=== PATIENT | male | born 1965 | race Caucasian/White ===

== ENCOUNTER → 2017-03-09 | Outpatient (CLI) | payer OTHER ==
--- NOTE | 2017-03-09 09:25 | RAD ---
MRI left shoulder without contrast dated 03/09/2017 8:23 AM Indication: Left shoulder pain pain after fall one year ago limited range of motion no prior surgery. Comparison: No comparison is available. Technique: Routine multiplanar multisequence imaging performed. No contrast administered. Findings: Moderate to severe hypertrophic change of the glenohumeral joint with prominent marginal osteophytes. Thinning and surface irregularity of the articular cartilage throughout. There is full-thickness cartilage loss of the medial humeral head and posterior glenoid. Deformity of the posterior glenoid could be related to glenoid dysplasia or prior healed fracture. Blunted morphology and ill-definition of the posterior labrum with increased signal throughout the labral substance. The anterior labrum is grossly intact. Small joint effusion. Small loose bodies or debris at the inferior joint space. Mild increased signal within the substance of the long head biceps tendon proximally. Extra articular portion courses within the bicipital groove. Biceps anchor intact. Intermediate T2 signal throughout the supraspinatus and infraspinatus portions of the rotator cuff. No full-thickness tear or cuff retraction. Subscapularis is intact. Mild hypertrophic change of the AC joint. No significant undersurface spurring. No significant subacromial/subdeltoid bursal fluid collection. Acromion type I morphology. Suprascapular and spinoglenoid notches are clear. No significant muscle edema or muscle atrophy. IMPRESSION: 1. 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 There is full-thickness cartilage loss of the medial humeral head and posterior glenoid. 2. Deformity of the posterior glenoid could be related to glenoid dysplasia or prior healed fracture. 3. Abnormal appearance of the posterior labrum consistent with chronic labral tearing. 4. Mild rotator cuff tendinopathy with no evidence of full-thickness tear. 5. Mild biceps tendinosis. 6. Mild AC joint arthropathy. Electronically signed by: Savage Reese MD (03/09/2017 9:22 AM) [id number]
== END | disposition home or self-care (01) ==
LOC: MRI 08:10
PROVIDERS: ATTEND Nurse Practitioner Family
DX: M19.012 Primary osteoarthritis, left shoulder (principal); M94.212 Chondromalacia, left shoulder; Z91.81 History of falling
CPT/HCPCS: 73221